=== PATIENT | female | born 1970 | race Caucasian/White ===

== ENCOUNTER → 2016-07-16 | Outpatient (CLI) | payer BC ==
--- NOTE | 2016-07-17 09:05 | KCIC ---
Examination: MRI of the left knee without contrast. HISTORY History of left knee pain in the posterior aspect. COMPARISON None available. TECHNIQUE Multiplanar, multisequence MR imaging of the left knee was performed without contrast. Findings: Prior changes of ACL reconstruction identified. The visualized anterior cruciate ligament appears grossly intact. There is small multiloculated T2 signal identified in the tibial tunnel of the anterior cruciate ligament reconstruction which could be a fluid extending from the joint effusion or a 1.2 centimeter ganglion cyst. Tibial screw is identified anterior to the tibial tunnel of the ACL reconstruction.the posterior cruciate ligament grossly appears intact. The body of the medial meniscus appears attenuated with blunting of the posterior horn of the medial meniscus could be secondary to prior meniscal surgery or a retear. There is some extension of the medial meniscus into the intercondylar notch, best visualized on series 7 image #11. There is a attenuated appearance of the body of the lateral meniscus with small appearing posterior horn of the lateral meniscus could be secondary to degeneration. The extensor mechanism is intact. There is mild tendinosis of the quadriceps tendon. The medial collateral ligament is intact. There is small focus of a low signal identified anterior to the medial collateral ligament could be scarring from prior surgical changes. The lateral collateral ligamentous complex including the fibular collateral ligament, biceps femoris tendon, popliteus tendon appear intact. Mild knee joint effusion is identified. There is deep fissuring of cartilage identified in the weightbearing portion of the medial compartment, lateral compartment and the patellofemoral compartment. Severe joint space loss identified in the medial, lateral compartment. Moderate joint space loss identified in the patellofemoral compartment. Small subchondral cysts identified in the medial femoral condyle in its weightbearing portion. Moderate size osteophyte formation identified in the medial, lateral compartments. Small osteophyte formation identified in the patellofemoral compartment. The medial retinaculum, lateral retinaculum appear intact. IMPRESSION - Blunting of the body and posterior horn of the medial meniscus could be prior surgical changes or a retear. There is extension of the some portion the medial meniscus into the intercondylar notch, best visualized on series 10 image #11 probably bucket-handle component tear. - Mild attenuated appearance of the body and posterior horn of the lateral meniscus probably degeneration. 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 - Small knee joint effusion. - Grade 3 chondromalacia medial compartment. Grade 2 chondromalacia lateral, patellofemoral compartment. - Reconstructed anterior cruciate ligament appears intact but there is small amount of multiloculated fluid identified in the tibial tunnel of the anterior cruciate ligament reconstruction could be fluid extending from knee joint or a small ganglion cyst measuring 1.1 centimeters. Electronically signed by: Adelfo Martinez (Jul 17, 2016 09:03:32)
== END | disposition home or self-care (01) ==
LOC: KCIC MRI 17:04
PROVIDERS: ATTEND Orthopaedic Surgery Sports Medicine
DX: M94.262 Chondromalacia, left knee (principal); M25.462 Effusion, left knee; M85.662 Other cyst of bone, left lower leg; M25.762 Osteophyte, left knee; M67.462 Ganglion, left knee
CPT/HCPCS: 73721

== ENCOUNTER → 2017-10-03 | Outpatient (CLI) | payer BC | END | disposition home or self-care (01) | LOC: KCIC 14:34 | DX: Z01.818 Encounter for other preprocedural examination (principal) | CPT/HCPCS: 71046 ==

== ENCOUNTER → 2019-07-20 | Outpatient (CLI) | payer BC ==
--- NOTE | 2019-07-20 15:24 | KCIC ---
EXAM: AP, bilateral oblique, lateral and open-mouth odontoid views of the cervical spine. DATE: 07/20/2019 12:00 AM CLINICAL HISTORY: COMPARISON: None available. FINDINGS: On the lateral view, the cervical spine is imaged from the skull base through C7. Vertebral body heights are preserved. Moderate C5-6 and C6-7 disc height loss. Small associated anterior posterior endplate osteophytes are seen. Straightening of the normal cervical lordosis. No spondylolisthesis. Oblique views demonstrate mild bony neural foraminal narrowing at C5-6 and C6-7. Normal predental space. No significant prevertebral soft tissue swelling. IMPRESSION: 1. Multilevel spondylosis as above 2. Negative acute fracture or subluxation. Electronically signed by: Henry Mullins MD (07/20/2019 3:21 PM) [id number]
== END | disposition home or self-care (01) ==
LOC: KCIC 10:02
PROVIDERS: ATTEND Family Medicine
DX: M47.812 Spondylosis without myelopathy or radiculopathy, cervical region (principal); M48.02 Spinal stenosis, cervical region; M25.78 Osteophyte, vertebrae
CPT/HCPCS: 72050

== ENCOUNTER → 2019-11-03 | Outpatient (CLI) | payer BC ==
--- NOTE | 2019-11-03 10:24 | RAD ---
PROCEDURE: FOOT BILAT 2V STUDY DATE: 11/03/2019 CLINICAL INDICATION / HISTORY: Reason: PAIN, BILATERAL FOOT PAIN NO INJURY. / Spl. Instructions: / History: . TECHNIQUE: AP, and lateral views of each foot. COMPARISON: None FINDINGS: No fracture or dislocation is identified. The bone density is normal. There is right midfoot osteophytic spurring of the tarsometatarsal junction and mild right first digit hallux valgus deformity. Left foot shows a small calcaneal spur is otherwise unremarkable. The joint space widths are maintained, and there are no erosions to suggest an inflammatory arthropathy. No soft tissue abnormality is seen. IMPRESSION: 1. Degenerative changes in the right midfoot and mild right hallux valgus deformity. 2. Left foot shows a small left calcaneal spur. 3. Otherwise unremarkable foot x-rays. Electronically signed by: Major Cunnignham MD (11/03/2019 10:21 AM) [id number]
== END | disposition home or self-care (01) ==
LOC: RAD 09:46
PROVIDERS: ATTEND Internal Medicine Rheumatology
DX: M19.071 Primary osteoarthritis, right ankle and foot (principal); M79.673 Pain in unspecified foot; M77.32 Calcaneal spur, left foot
CPT/HCPCS: 73620

== ENCOUNTER → 2020-10-10 | Outpatient (CLI) | payer BC ==
--- NOTE | 2020-10-10 10:55 | KCIC ---
XR CERVICAL SPINE 4-5V History: Numbness left arm. Tendinitis left rotator cuff. No recent injury. Past history of a fall. Comparison: 07/20/2019 Technique: 5 views of the cervical spine. Findings: There are 7 non-rib bearing cervical vertebral segments. There is no evidence for fracture. Straightening of the normal cervical lordosis. No spondylolisthesis. No destructive osseous lesions are seen. Multilevel facet hypertrophy greatest at C2-C3 and C3-C4. Disc space narrowing and uncovertebral hypertrophy greatest at C5-C6 and C6-C7 with mild osseous sten osis at the neural foramina. Soft tissues are unremarkable. IMPRESSION: 1. Degenerative disease of the cervical spine greatest at C5-C6 and C6-C7 where disc height loss and uncovertebral hypertrophy may cause neural foraminal stenosis. Correlate for radiculopathy. Consider MRI for further evaluation. Electronically signed by: Santi Ceron MD (10/10/2020 10:52 AM) [facility]
--- NOTE | 2020-10-10 10:56 | KCIC ---
XR SHOULDER_LEFT 2+ VIEWS History: Numbness left arm. Left rotator cuff tendinitis. Comparison: None. Technique: 3 views the left shoulder. Findings: There is no evidence for fracture. Alignment is normal. No destructive osseous lesions are seen. Mild degenerative changes of the left acromioclavicular and glenohumeral joints. Soft tissues are nor mal. Impression: 1. Mild degenerative changes of the left shoulder without acute osseous abnormality. Electronically signed by: Santi Ceron MD (10/10/2020 10:53 AM) [facility]
== END ==
LOC: KCIC 09:58
PROVIDERS: ATTEND Family Medicine
DX: M19.012 Primary osteoarthritis, left shoulder (principal); M47.812 Spondylosis without myelopathy or radiculopathy, cervical region; M75.82 Other shoulder lesions, left shoulder; M75.102 Unspecified rotator cuff tear or rupture of left shoulder, not specified as traumatic
CPT/HCPCS: 72050; 73030